=== PATIENT | female | born 2000 | race Caucasian/White ===

== ENCOUNTER 2018-12-20 20:49 | Emergency (ER) | payer BC ==
--- NOTE | 2018-12-20 21:17 | EDPHY ---
H & P Stated Complaint: CUT WEBBING BETWEEN THUMB AND SECOND FINGER L HAND/KNIFE Time Seen by Provider: 12/20/18 21:14 HPI/ROS: HPI: This is a 18-year-old female who presents with Chief Complaint: Left hand laceration Location: Left hand Quality: Laceration Duration: 1 hr prior to arrival Signs and Symptoms: + bleeding, no radiation, no numbness, no weakness, no tingling, no incontinence, no decreased range of motion, no swelling, + pain, no fever Timing: Acute Severity: [id number] Context: Patient is a student at [employer], right-hand dominant, presents with accidentally cutting her left hand at the base the 5th digit with a knife while trying to open up a Gatorade bottle. Injury happened 1 hr prior to arrival. She reports that it started to bleed and she applied direct pressure and the bleeding stopped. Denies any radiation, weakness, decreased range of motion. Tetanus is current. Modifying Factors: Direct pressure Comment: ROS: A comprehensive 10 system review of systems is otherwise negative aside from elements mentioned in the history of present illness. MEDICAL/SURGICAL/SOCIAL HISTORY: Medical history: Generally healthy. Does not take any regular medications. Surgical history: Denies Social history: Student at [employer]. CONSTITUTIONAL: Slightly anxious young adult white female, awake and alert, no obvious distress HEENT: Atraumatic and normocephalic. NECK: supple, no midline tenderness. Cardiovascular: Normal S1/S2, regular rate, regular rhythm, without murmur rub or gallop. PULMONARY/CHEST: Symmetrical and nontender. Clear to auscultation bilaterally. Good air movement. No accessory muscle usage. ABDOMEN: Soft, nondistended, nontender. EXTREMITIES: 2/2 pulses, strength 5/5, left hand at the base of the 4th finger shows 6 mm, superficial, linear laceration with no active bleeding. No scaphoid tenderness. DIP/PIP/MCP flexion/extension intact with good light touch sensation. no deformities, no clubbing, no cyanosis or edema. NEUROLOGICAL: no focal neuro deficits. GCS 15. Light touch sensation intact. SKIN: Warm and dry, no erythema. no rash. Good capillary refill. Source: Patient Exam Limitations: No limitations - Personal History LMP (Females 10-55): 15-21 Days Ago Current Tetanus Diphtheria and Acellular Pertussis (TDAP): Yes - Medical/Surgical History Hx Asthma: No Hx Chronic Respiratory Disease: No Hx Diabetes: No Hx Cardiac Disease: No Hx Renal Disease: No Hx Cirrhosis: No Hx Alcoholism: No Hx HIV/AIDS: No Hx Splenectomy or Spleen Trauma: No Other PMH: DENIES - Social History Smoking Status: Never smoked Constitutional: Initial Vital Signs Temperature (C) 37.0 C 12/20/18 20:54 Heart Rate 105 H 12/20/18 20:54 Respiratory Rate 16 12/20/18 20:54 Blood Pressure 156/95 H 12/20/18 20:54 O2 Sat (%) 96 12/20/18 20:54 O2 Delivery Mode Room Air Allergies/Adverse Reactions: No Known Allergies Allergy (Unverified 12/20/18 20:53) Home Medications: Medication Instructions Recorded Control 12/20/18 Medical Decision Making Procedures: Procedure: Laceration repair. Verbal consent was obtained from the patient. The 6 mm, linear, superficial laceration on the left hand base of 4th finger was anesthetized in the usual fashion using 4 mL of 1% lidocaine with epinephrine.. The wound was irrigated, draped and explored to its base with a gloved finger. There were no deep structures involved. No tendon injury was identified. The wound was repaired with #3, 5-0 Prolene in simple interrupted pattern. Good hemostasis was achieved and patient tolerated procedure well. Clean sterile dressing applied.. The procedure was performed by myself. ED Course/Re-evaluation: Vital signs reviewed and show mild tachycardia likely due to anxiousness. Tetanus is up-to-date. Local anesthesia provided; copiously irrigated Laceration repaired with 3 nonabsorbable sutures. Xeroform and clean sterile dressing applied. Written and verbal wound care instructions provided. No signs of neurovascular compromise/tenting of skin/compartment syndrome/ extremities and joints examined above and below area of concern and are neurovascularly intact/tendon injury. This patient was seen under the supervision of my primary supervising physician. I evaluated care for this patient independently. Differential Diagnosis: Differential diagnosis includes but is not limited to foreign body, laceration, nerve injury, tendon injury. Departure - Departure Disposition: Home, Routine, Self-Care Clinical Impression: Laceration without foreign body of left hand, initial encounter Condition: Good Instructions: Care For Your Stitches (ED), Laceration (ED) Additional Instructions: Keep the dressing dry and in place for 48 hours. After 48 hours, you may remove the dressing; wash the site daily with mild soap and water; then pat dry. Take Tylenol 650 mg every 4 hours and/or Ibuprofen 600 mg every 8 hours with food as needed for pain. Wound Care Follow-Up: Removal of sutures in [10] days. Suture removal is complimentary in uncomplicated cases. Infection or abnormal findings would require reevaluation by the MD. In that case, you may be billed. Referrals: JOSHUA MOLINA [Other] - As per Instructions Hoang Gordon MD [Medical Doctor] - As per Instructions
[2018-12-30 10:52] VITALS: BP 149/75
== END 2018-12-20 22:06 | disposition home or self-care (01) ==
PROC: 0HQGXZZ Repair Left Hand Skin, External Approach (ICD-10-PCS; principal; 2018-12-20)
DX: S61.412A Laceration without foreign body of left hand, initial encounter (principal); W26.0XXA Contact with knife, initial encounter; Y92.9 Unspecified place or not applicable; Y99.9 Unspecified external cause status; Y93.89 Activity, other specified